=== PATIENT | male | born 2005 | race Caucasian/White ===

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

== ENCOUNTER 2024-07-02 13:23 | Emergency (ER) | payer SELFPAY | END 2024-07-02 15:25 | disposition home or self-care (01) | LOC: MW.ED 13:23 | DX: J06.9 Acute upper respiratory infection, unspecified (principal); B97.89 Other viral agents as the cause of diseases classified elsewhere | CPT/HCPCS: 87428-QW; 87651-QW; 99284 ==

== ENCOUNTER 2025-05-18 18:35 | Emergency (ER) | payer SELFPAY ==
[2025-05-18] MEDS ORDERED: Ondansetron 4 MG Tab.DIS PO ONE (18:44)
== END 2025-05-18 19:53 | disposition home or self-care (01) ==
LOC: MW.ED 18:35
DX: J11.2 Influenza due to unidentified influenza virus with gastrointestinal manifestations (principal); Z79.899 Other long term (current) drug therapy
CPT/HCPCS: 99283; 99284